=== PATIENT | female | born 1965 ===

== ENCOUNTER 2020-11-08 14:07 | Emergency (ER) | payer OTHER ==
[~2020-11-08] VITALS: Ht 188 cm; Wt 83.9 kg
[2020-11-08] MEDS ORDERED: XOPENEX0.63 MG/3 (14:29)
== END 2020-11-08 15:58 | disposition home or self-care (01) ==
LOC: ER 14:07
DX: B35.3 Tinea pedis (principal)

== ENCOUNTER 2021-03-27 11:46 | Emergency (ER) | payer OTHER ==
[~2021-03-27] VITALS: Ht 188 cm; Wt 84.4 kg
[~2021-03-27 11:46] MED LIST: XOPENEX0.63 MG/3
[2021-03-27] MEDS ORDERED: CYCLOBENZAPRINE10 MG PO (19:42)
[2021-03-27] MEDS ORDERED: FLONASE ALLERG9.9 ML NASAL (19:42)
[2021-03-27] MEDS ORDERED: ZITHROMAX500 MG PO (19:42)
[2021-03-27] MEDS ORDERED: DICLOFENAC POTA50 MG PO (19:42)
== END 2021-03-27 20:29 ==
LOC: ER 11:46
DX: B34.9 Viral infection, unspecified (principal); R50.9 Fever, unspecified; M54.2 Cervicalgia

== ENCOUNTER → 2021-03-30 | Emergency (ER) | payer OTHER ==
[~2021-03-30] VITALS: Ht 188 cm; Wt 83.9 kg
[~2021-03-30] MED LIST changes: +CYCLOBENZAPRINE10 MG PO; +DICLOFENAC POTA50 MG PO; +FLONASE ALLERG9.9 ML NASAL; +ZITHROMAX500 MG PO
== END | disposition left against medical advice (07) ==
LOC: ER 10:23
DX: M54.2 Cervicalgia (principal)